=== PATIENT | female | born 1975 | race Hispanic/Latino ===

== ENCOUNTER 2017-03-16 15:36 | Emergency (ER) | payer MEDICAID, SELFPAY ==
[2017-03-16 15:44] VITALS: BMI 26.6
[2017-03-16] MEDS ORDERED: Naloxone 0.4 mg/ml Inj (Adult) IVP STA (16:00)
--- NOTE | 2017-03-16 16:08 | ED PDOC ---
Arrival/HPI - General Chief Complaint: Substance Abuse Time Seen by Provider: 03/16/17 15:39 Historian: Patient, Police - History of Present Illness Time/Duration: Prior to Arrival Symptom Course: Unchanged Severity Level: Moderate Associated Symptoms (Text): 03/16/17 16:07 03/16/17 16:08 Found outside sleeping in the car by police. Reports did heroin just prior to being found by police. She injects. Reports negative HIV one month ago. Extremely lethargic. No respiratory distress. Past Medical History - Infectious Disease Hx of Infectious Diseases: None - Psychiatric Hx Substance Use: Yes (Earlier today) - Surgical History Other/Comment: ACL repair Family/Social History - Physician Review Nursing Documentation Reviewed: Yes Family/Social History: Unknown Family HX Smoking Status: Heavy Smoker > 10 Cigarettes Daily Hx Alcohol Use: Yes Frequency of alcohol use: Socially Hx Substance Use: Yes (Earlier today) Substance used: Heroin Allergies/Home Meds Allergies/Adverse Reactions: Allergies No Known Allergies Allergy (Verified 03/16/17 15:53) Home Medications: Home Meds Medication Instructions Recorded Confirmed No Known Home Med 03/16/17 03/16/17 Review of Systems - Review of Systems Systems not reviewed;Unavailable: Altered Mental Status Physical Exam Vital Signs Temp Pulse Resp BP Pulse Ox 03/16/17 17:01 80 16 131/84 100 03/16/17 15:53 98.1 F 76 20 115/78 99 Temperature: Afebrile Blood Pressure: Normal Pulse: Regular Respiratory Rate: Normal Appearance: Positive for: Well-Appearing, Non-Toxic, Comfortable Pain Distress: None Mental Status: Positive for: Lethargic, other (lethargic, but arousable) - Systems Exam Head: Present: Atraumatic, Normocephalic Pupils: Present: PERRL, Pinpoint Extroacular Muscles: Present: EOMI Conjunctiva: Present: Normal Mouth: Present: Moist Mucous Membranes Pharnyx: No: ERYTHEMA, EXUDATE, TONSILS ENLARGED Neck: Present: Normal Range of Motion Respiratory/Chest: Present: Clear to Auscultation, Good Air Exchange, Decreased Breath Sounds. No: Respiratory Distress, Accessory Muscle Use Cardiovascular: Present: Regular Rate and Rhythm, Normal S1, S2. No: Murmurs Abdomen: Present: Normal Bowel Sounds. No: Tenderness, Distention, Peritoneal Signs, Rebound, Guarding Neurological: Present: GCS=15, CN II-XII Intact, Motor Func Grossly Intact, Other (lethargic but arousable). No: Speech Normal Medical Decision Making ED Course and Treatment: 03/16/17 17:59 Patient had improvement with Narcan, then went back to sleep. It appears clear that she had an opiate overdose. She will be discharged in police custody. - Medication Orders Current Medication Orders: Discontinued Medications Naloxone HCl (Narcan) 0.4 mg IVP STAT STA Stop: 03/16/17 16:01 Last Admin: 03/16/17 16:13 Dose: 0.4 mg Disposition/Present on Arrival - Present on Arrival Any Indicators Present on Arrival: No History of DVT/PE: No History of Uncontrolled Diabetes: No Urinary Catheter: No History of Decub. Ulcer: No History Surgical Site Infection Following: None - Disposition Have Diagnosis and Disposition been Completed?: Yes Diagnosis: Opiate overdose, Substance abuse Disposition: RELEASED IN POLICE CUSTODY Disposition Time: 18:00 Patient Plan: Discharge Condition: IMPROVED Discharge Instructions (ExitCare): Narcotic Abuse (ED)
[2017-03-16 18:33] VITALS: BP 119/73; PULSE 79; RESP 18; TEMP 98; O2SAT 99
== END 2017-03-16 18:34 ==
LOC: ED 15:36
DX: F19.10 Other psychoactive substance abuse, uncomplicated (principal); T40.601A Poisoning by unspecified narcotics, accidental (unintentional), initial encounter; Y92.89 Other specified places as the place of occurrence of the external cause
CPT/HCPCS: 96374; 99284; J2310